=== PATIENT | female | born 1995 | race Caucasian/White ===

== ENCOUNTER 2019-10-24 06:33 | Emergency (ER) | payer SELFPAY ==
[2019-10-24 07:03] VITALS: BP 139/91; PULSE 84; RESP 16; TEMP 36.8; O2SAT 98; BMI 32.0
--- NOTE | 2019-10-24 07:05 | XR_ITS ---
WS: [id number] LEFT ANKLE: 3 VIEW(S) TECHNIQUE: AP, oblique(s) and lateral. HISTORY: ankle injury COMPARISON: None available. Normal anatomic alignment with no fracture or dislocation. No joint effusion or widening of the ankle mortise. No significant degenerative changes at the joint spaces. No soft tissue abnormality. XR/XR ankle LT min 3V* [id number] IMPRESSION: Normal LEFT ankle.
--- NOTE | 2019-10-24 07:06 | W.ED.EXTPRO ---
HPI - Extremity Problem General: Chief complaint: Extremity Injury, Lower Stated complaint: LEFT FOOT ANKLE PAIN Time Seen by Provider: 10/24/19 07:04 Review of Systems Narrative: Patient states that last night she was changing a flat tire. At some time during the repairs she states she jumped up and down and injured her left ankle. Musc: Reports: extremity pain and joint pain PFSH ED PFSH: Social History Smoking and tobacco status: current every day smoker Physical Exam Extremity: COMMON NORMALS: full ROM LEFT LOWER EXTREMITY: Yes ankle joint Left ankle: Yes inspection (ttp) and Yes palpation (ttp) Course Vital Signs: Vital signs: Vital Signs Temperature 98.3 F 10/24/19 07:03 Pulse Rate 84 10/24/19 07:03 Respiratory Rate 16 10/24/19 07:03 Blood Pressure 139/91 10/24/19 07:03 Pulse Oximetry 98 10/24/19 07:03 MDM - Extremity (Nontraumatic) MDM Narrative: Medical decision making narrative: no fx or dislocation on xray Discharge Plan Discharge Patient Disposition: Home, Self-Care Clinical Impression: Ankle sprain and strain Condition: Stable Prescriptions: New Tylenol-Codeine #3 300-30 mg tablet 1 tab PO Q4H PRN (Reason: pain) Qty: 14 RF: 0 Discharge Orders: Discharge Order (Routine); Ordered 10/24/19 Ordered By: Timothy Hearn Patient Instructions: Ankle Sprain (ED) Coding Level of Care Code ED Optimization Engineer for Kaitlyng Fwd Exam Problem Focused
--- NOTE | 2019-10-24 07:13 | PC.NURSE ---
XR performed at bedside
--- NOTE | 2019-10-24 07:15 | PC.NURSE ---
x ray to room
--- NOTE | 2019-10-24 07:57 | PC.NURSE ---
wrapped pts left ankle with 1 3 brittany bandage
[2019-10-24 07:58] VITALS: PULSE 85; RESP 16; O2SAT 98
== END 2019-10-24 07:50 | disposition home or self-care (01) ==
PROVIDERS: Emergency Provider Family Medicine
DX: S93.402A Sprain of unspecified ligament of left ankle, initial encounter (principal); M25.572 Pain in left ankle and joints of left foot; F17.210 Nicotine dependence, cigarettes, uncomplicated; X58.XXXA Exposure to other specified factors, initial encounter
CPT/HCPCS: 12345; 73610; 99282; 99283; E0114

== ENCOUNTER 2019-12-29 22:04 | Emergency (ER) | payer SELFPAY ==
--- NOTE | 2019-12-29 22:46 | W.ED.ALLEREA ---
HPI - Allergic Reaction General: Chief complaint: Allergic Reaction Stated complaint: allergic reaction Time Seen by Provider: 12/29/19 22:12 History of Present Illness: HPI narrative: Patient is a 24-year-old female comes to the ED with an allergic reaction. Patient has a past medical history of being allergic to peanuts and does have an EpiPen for peanut allergy. Allergic reaction started approximately 1 hour ago. Patient says she came in contact with peanut product and a sonic cup that she was drinking from. Patient says she started developing itchy hives rash on all extremities and now she is feeling her mouth getting a little itchy and tingling as well. Denies shortness of breath. Patient did not use EpiPen prior to arrival but did take two 25mg benadryl tablets before arriving to the ED. Associated symptoms: Deny abdominal pain, nausea or vomiting Review of Systems Const: Denies: fever(s), chills or fatigue Eyes: Denies: change in vision or eye discomfort ENMT: Reports: other (Patient says she is having some tingling and itchy sensation in her mouth and throat.); Denies: throat pain, odynophagia, nasal discharge or nasal congestion Card: Denies: chest pain, palpitations, edema, swelling of feet/ankles, dyspnea on exertion or orthopnea Resp: Denies: dyspnea, productive cough or non-productive cough GI: Denies: abdominal pain, nausea, vomiting, diarrhea, constipation or hematochezia : Denies: flank pain, dysuria or hematuria Musc: Denies: neck pain, back pain or extremity swelling Skin/Breast: Reports: rash (Pruritic hive rash on all extremities.); Denies: new lesions Neuro: Denies: headache(s), numbness in extremities or weakness in extremities [facility] ED PFSH: Social History Smoking and tobacco status: current every day smoker Physical Exam Const: COMMON NORMALS: no acute distress, patient oriented x3 and alert GENERAL APPEARANCE: cooperative and anxious HENMT: COMMON NORMALS: normocephalic HEAD & SCALP: normocephalic MOUTH: Normal oral and palatal mucosa present THROAT: posterior oropharynx normal and uvula midline Eye: COMMON NORMALS: Equal, round and reactive pupils present PUPIL: Yes Equal, round and reactive pupils present Neck/C-Spine: COMMON NORMALS: supple GENERAL: Yes normal visual inspection Resp: COMMON NORMALS: normal respiratory effort, No retractions, No use of accessory muscles and clear to auscultation bilaterally EFFORT & INSPECTION: Yes able to speak in complete sentences, No respiratory distress and No labored AUSCULTATION: clear to auscultation bilaterally Cardio: COMMON NORMALS: regular rate, regular rhythm, S1 normal heart sound present, S2 normal heart sound present, No gallops present (Cardio), No clicks present (Cardio), No murmurs present (Cardio) and Peripheral pulses 2+ throughout RATE: regular rate RHYTHM: regular rhythm HEART SOUNDS: S1 normal heart sound present and S2 normal heart sound present PERIPHERAL PULSES: Peripheral pulses 2+ throughout GI: COMMON NORMALS: Normal to inspection, nondistended, normoactive bowel sounds present, Soft to palpation, non-tender and no masses PALPATION: Yes Soft to palpation : COMMON NORMALS: Yes no CVA tenderness BLADDER/KIDNEY EXAM: Yes no CVA tenderness Back/Pelvis: COMMON NORMALS: no CVA tenderness Extremity: NARRATIVE EXTREMITY EXAM: Patient has pruritic hives on all extremities. GENERAL: Yes normal exam except as noted Neuro: COMMON NORMALS: patient oriented x3 and moves all extremities SENSORIUM/ORIENTATION: Yes alert Skin: RASHES: rashes noted (Pruritic rash.) Extremities Rash type: Yes maculopapular Rash distribution: Yes clustered Rash color: Yes red Rash surface: Yes dry and Yes raised Rash findings consistent with: Yes hives Course Reevaluation(s): Reevaluation #1: Within 10 minutes after giving epinephrine injection patient symptoms greatly improved and she is no longer has any itching or tingling sensation in throat or mouth. Hives have also resolved. We will continue to observe her to look for any rebound reaction. Vital Signs: Vital signs: Vital Signs Pulse Rate 98 12/30/19 01:19 Respiratory Rate 18 12/30/19 01:19 Blood Pressure 149/99 12/30/19 01:19 Pulse Oximetry 98 12/30/19 01:19 MDM - Allergic Reaction MDM Narrative: Medical decision making narrative: Patient is a 24-year-old female that comes to the ED with an allergic reaction from peanuts. Patient has an EpiPen for allergic reactions but did not use EpiPen. Patient took 2 tablets of Benadryl before arriving to ED. Patient had hives on upper and lower extremities bilaterally and was complaining of mouth and tongue numbness and tingling. Patient was given a dose of IM epinephrine and some oral prednisone while here in the ED. Patient's hives and oral numbness and tingling resolved within 15 minutes after dose. Patient was then observed for over 2 hours for any rebound reaction. Patient was doing well and ready for discharge. Patient was given a prescription for prednisone. Patient was told to follow-up with PCP in 7 to 10 days for reevaluation. She can come back into the ED if she has any reoccurring symptoms or any shortness of breath. Patient understood and agreed with plan. Discharge Plan Discharge Patient Disposition: Home, Self-Care Clinical Impression: Allergic reaction to peanut Condition: Stable Prescriptions: New prednisone 50 mg tablet 50 mg PO DAILY 5 Days Qty: 5 RF: 0 No Action Tylenol-Codeine #3 300-30 mg tablet 1 tab PO Q4H PRN (Reason: pain) Qty: 14 RF: 0 Discharge Orders: Discharge Order (Routine); Ordered 12/30/19 Ordered By: Ranjan Barton Discharge Diet: Regular Discharge Activity: Resume usual activity Patient Instructions: Allergic Reaction, Epinephrine (Injection) Activity Restrictions/Additional Instructions: Take full course of steroids as prescribed. You can also take Benadryl at home as needed. Return to the ED if you have any worsening symptoms or trouble breathing. Drink plenty fluids and stay hydrated. Discharge Date/Time: 12/30/19 01:20 Coding Level of Care Code ED Figure Refinisher And Repairer for Kenroy Giron Exam Comprehensive
[2019-12-29] MEDS: EPINEPHrine 1 mg/mL INJ 0.5 MG IM (22:56)
--- NOTE | 2019-12-29 23:02 | PC.NURSE ---
patient states that she was getting a drink from [employer] when she noticed that there was a peanut on the side of the cup. patient states that she left work due to her lips swelling and having hives over her body. patient is stating that she is having trouble breathing and tingling in her throat. patient was givn Epi per order. patient hooked up to vitals machine. oxygen saturation 98% on room air. no difficulty breathing at this time. call light given to patient. will contine to monitor.
[2019-12-29 23:30] VITALS: BP 153/96; PULSE 94; RESP 18; O2SAT 98; BMI 32.5
[2019-12-30] MEDS: predniSONE 20 mg Tablet 60 MG PO (00:09)
[2019-12-30 00:15] VITALS: BP 153/96; PULSE 112; RESP 20; O2SAT 98
[2019-12-30 01:19] VITALS: BP 149/99; PULSE 98; RESP 18; O2SAT 98
== END 2019-12-30 01:20 | disposition home or self-care (01) ==
PROVIDERS: Emergency Provider Physician Assistant
DX: T78.1XXA Other adverse food reactions, not elsewhere classified, initial encounter (principal); X58.XXXA Exposure to other specified factors, initial encounter; F17.210 Nicotine dependence, cigarettes, uncomplicated
CPT/HCPCS: 12345; 96372; 99281; 99283; J0171; J7512

== ENCOUNTER → 2020-10-18 10:21 | Outpatient (BNVA) | payer OTHER, SELFPAY | PROVIDERS: Visit Provider Internal Medicine | DX: E16.2 Hypoglycemia, unspecified (principal); R03.0 Elevated blood-pressure reading, without diagnosis of hypertension | CPT/HCPCS: 99204 ==

== ENCOUNTER → 2020-11-01 10:49 | Outpatient (BNVA) | payer OTHER, SELFPAY | PROVIDERS: Visit Provider Internal Medicine | DX: E16.0 Drug-induced hypoglycemia without coma (principal); T38.0X5A Adverse effect of glucocorticoids and synthetic analogues, initial encounter; R03.0 Elevated blood-pressure reading, without diagnosis of hypertension | CPT/HCPCS: 99214 ==

== ENCOUNTER → 2020-11-22 10:33 | Outpatient (BNVA) | payer OTHER, SELFPAY | PROVIDERS: Visit Provider Counselor Professional | DX: F41.1 Generalized anxiety disorder (principal) | CPT/HCPCS: 90834; 90839 ==

== ENCOUNTER → 2020-12-13 09:52 | Outpatient (BNVA) | payer OTHER, SELFPAY | PROVIDERS: Visit Provider Counselor Professional | DX: F41.1 Generalized anxiety disorder (principal); F32.9 Major depressive disorder, single episode, unspecified; F43.10 Post-traumatic stress disorder, unspecified | CPT/HCPCS: 90834 ==

== ENCOUNTER → 2020-12-27 09:02 | Outpatient (BNVA) | payer OTHER, SELFPAY | PROVIDERS: Visit Provider Counselor Professional | DX: F41.1 Generalized anxiety disorder (principal); F32.9 Major depressive disorder, single episode, unspecified; F43.10 Post-traumatic stress disorder, unspecified | CPT/HCPCS: 90834 ==

== ENCOUNTER 2021-01-14 14:14 | Emergency (ER) | payer OTHER, SELFPAY ==
[2021-01-14 14:17] VITALS: BP 164/120; PULSE 135; RESP 24; TEMP 36.5; O2SAT 99; BMI 36.6
[2021-01-14 14:33] VITALS: BP 148/104; PULSE 111; RESP 18; O2SAT 96
--- NOTE | 2021-01-14 14:35 | ED_ITS ---
HPI - General Adult General: Chief complaint: General Medical Stated complaint: medication withdrawl Time Seen by Provider: 01/14/21 14:18 History of Present Illness: HPI narrative: 25-year-old female presents emergency room with acute anxiety attack. 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 In talking to her patient stopped her buspirone sertraline and trazodone sometime around 01/09, she then started Zyprexa 5 mg daily on . She stopped it secondary to side effects yesterday today she had a severe reaction. She denies any other symptoms she is not suicidal or homicidal. Onset (ago): minute(s) Severity: severe Relieving factors: none Exacerbating factors: none Associated symptoms: Reports nausea, palpitations, short of breath and vomiting; Deny chest pain, confusion, cough, diaphoresis, decreased appetite, dyspnea, fevers/chills, headache(s), malaise, rash, seizures, syncope or weakness Treatments prior to arrival: none Review of Systems Const: Denies: malaise or diaphoresis ENMT: Denies: throat pain, ear or mastoid pain, nasal discharge or nasal congestion Card: Reports: palpitations; Denies: chest pain or syncope Resp: Denies: dyspnea GI: Reports: nausea and vomiting : Denies: flank pain, difficulty voiding, dysuria, urinary frequency or urinary urgency Skin/Breast: Denies: rash Neuro: Denies: headache(s) or confusion PFS ED PFSH: Medical History Anxiety Depression Hypoglycemia Surgical History History of placement of ear tubes History of tonsillectomy and adenoidectomy Family History Other Cancer Diabetes Hypertension Psychiatric illness Stroke Social History Smoking and tobacco status: current every day smoker Second hand smoke exposure: Yes Alcohol intake: current Alcohol intake frequency: holidays/special occasions only Physical Exam Const: COMMON NORMALS: no acute distress GENERAL APPEARANCE: cooperative and comfortable ORIENTATION/CONSCIOUSNESS: Yes awake, Yes oriented to person, Yes oriented to place and Yes oriented to time HENMT: COMMON NORMALS: normocephalic, atraumatic, hearing grossly normal bilaterally and external ears normal HEAD & SCALP: normocephalic and atraumatic EXTERNAL EAR: Yes external ears normal Neck/C-Spine: COMMON NORMALS: no JVD Resp: COMMON NORMALS: normal respiratory effort, No retractions, No use of accessory muscles and clear to auscultation bilaterally AUSCULTATION: clear to auscultation bilaterally Cardio: COMMON NORMALS: no JVD, regular rate, regular rhythm and No murmurs present (Cardio) RATE: regular rate RHYTHM: regular rhythm GI: COMMON NORMALS: Soft to palpation and No hepatosplenomegaly present AUSCULTATION: Yes normoactive bowel sounds PALPATION: Yes Soft to palpation, No Tenderness to palpation present (GI), No Guarding due to palpation present (GI) and Yes No hepatosplenomegaly present Extremity: COMMON NORMALS: normal to inspection, capillary refill normal, no clubbing, cyanosis or edema, no calf tenderness and no pedal edema Neuro: SENSORIUM/ORIENTATION: Yes oriented to person, Yes oriented to place and Yes oriented to time Skin: COMMON NORMALS: no rashes or lesions noted GENERAL SKIN EXAM: no rashes or lesions noted Course Vital Signs: Vital signs: Vital Signs Temperature 97.7 F 01/14/21 14:17 Pulse Rate 111 H 01/14/21 14:33 Respiratory Rate 18 01/14/21 14:33 Blood Pressure 148/104 01/14/21 14:33 Pulse Oximetry 96 01/14/21 14:33 MDM - General Adult MDM Narrative: Medical decision making narrative: Consulted Dr. Braxton via phone he recommends that it is situational active as he would restart buspirone and sertraline at low-dose hold off on the trazodone and use propranolol 20 mg every 8 hours as needed. He was able to review the [facility] notes in the EMR. I do not have access to these notes. We will institute the sertraline at 50 mg daily she probably could have this titrated back up relatively quickly. I think she will benefit from regular use of the BuSpar instead of simply as needed use and it may cut down on her side effects. Instead she should use the propranolol on a as needed basis to help with acute anxiety physical symptoms. She made a comment that she always can tell when she is about to have a panic attack she can sense that her heart rate is going up the propranolol should help keep these from escalating. Asked her to hold off on any Zyprexa for now. She should follow-up and have all of these medications adjusted/fine-tuned through [facility] within the next 1 to 2 weeks. Discharge Plan Discharge Patient Disposition: Home Clinical Impression: Anxiety, Panic attack as reaction to stress Condition: Stable Prescriptions: New sertraline 50 mg tablet 50 mg PO DAILY Qty: 30 RF: 0 buspirone 7.5 mg tablet 7.5 mg PO BID Qty: 20 RF: 0 propranolol 20 mg tablet 20 mg PO Q8H PRN (Reason: anxiety) Qty: 30 RF: 0 Discontinued aripiprazole 5 mg tablet 5 mg PO QPM RF: 0 No Action trazodone 50 mg tablet 50 mg PO BEDTIME RF: 0 desogestrel-ethinyl estradiol [Apri] 0.15-0.03 mg tablet 1 tab PO BEDTIME RF: 0 Tylenol 325 mg Tablet 650 mg PO PRN RF: 0 Benadryl 25 mg Capsule 50 mg PO PRN RF: 0 montelukast 10 mg tablet 10 mg PO DAILY PRN (Reason: UNKNOWN) RF: 0 Flonase 50 mcg/actuation [place],Suspension 2 spray INTRANASAL DAILY RF: 0 Discharge Orders: Discharge ED (Routine); Ordered 01/14/21 Ordered By: Sarthak Nelson Discharge Diet: Usual diet Discharge Activity: Increase activity as tolerated Patient Instructions: Opioid Safety Coding Level of Care Code ED Golf Course Superintendent for Kenroy Giron
[2021-01-14] MEDS: LORazepam 2 mg/mL INJ 1 mL IM (14:36)
[2021-01-14 15:25] VITALS: BP 128/81; PULSE 102; RESP 18; O2SAT 100
== END 2021-01-14 15:26 | disposition home or self-care (01) ==
PROVIDERS: Emergency Provider Family Medicine
DX: F41.9 Anxiety disorder, unspecified (principal); F41.0 Panic disorder [episodic paroxysmal anxiety]; F17.210 Nicotine dependence, cigarettes, uncomplicated
CPT/HCPCS: 96372; 99283; J2060

== ENCOUNTER 2021-04-17 18:55 | Emergency (ER) | payer OTHER, SELFPAY ==
[2021-04-17 19:31] VITALS: BP 143/97; PULSE 110; RESP 18; TEMP 36.5; O2SAT 96; BMI 32.9
--- NOTE | 2021-04-17 20:00 | ED_ITS ---
HPI - Headache General: Chief Complaint: Headache Stated Complaint: Got Covid Shot\Headache\Nausea\Muscle Aches Time Seen by Provider: 04/17/21 19:57 History of Present Illness: HPI Narrative: Patient complains about headache since she had her Covid shot on Wednesday. Patient has history of migraines. Patient says she is bothered by light and sound. Has been nauseated has had some diarrhea also. Did have Covid back in January. MD elicited complaint: headache Onset (ago): day(s) Onset description: gradually Location: temporal Severity: moderate Quality & Timing: throbbing Exacerbating factors: light and noise Relieving factors: nothing Associated symptoms: Reports nausea and other (Diarrhea, myalgia); Deny chest pain, fever(s) or rash Review of Systems Const: Denies: fever(s), chills or body aches Eyes: Denies: change in vision or blurry vision ENMT: Denies: throat pain or nasal congestion Card: Denies: chest pain or dyspnea on exertion Resp: Denies: dyspnea, productive cough or non-productive cough GI: Reports: nausea Musc: Reports: extremity pain (Myalgias) Skin/Breast: Denies: rash Neuro: Reports: headache(s) Psych: Denies: anxiety or depression Homer/Lymph: Denies: easy bruising PFSH ED PFSH: Medical History (Updated 04/17/21 @ 21:30 by LUBNA Masterson) Anxiety Bipolar 1 disorder, mixed, moderate Chronic post-traumatic stress disorder Depression Generalized anxiety disorder Hypoglycemia Psychiatric care Surgical History History of placement of ear tubes History of tonsillectomy and adenoidectomy Family History Other Cancer Diabetes Hypertension Psychiatric illness Stroke Social History Smoking and tobacco status: current every day smoker Second hand smoke exposure: Yes Alcohol intake: current Alcohol intake frequency: holidays/special occasions only Female Reproductive History: Date of last menstrual period: 04/03/21 Physical Exam Const: COMMON NORMALS: no acute distress, average body habitus and patient oriented x3 HENMT: COMMON NORMALS: normocephalic HEAD & SCALP: normal to inspection and normocephalic FACE & SINUS: normal facial exam Eye: COMMON NORMALS: conjunctivae normal GENERAL EYE: appearance normal, both eyes and all related structures CONJUNCTIVA: Yes conjunctivae normal Neck/C-Spine: COMMON NORMALS: no JVD Chest: COMMONS NORMALS: normal inspection of the chest Resp: COMMON NORMALS: normal respiratory effort and clear to auscultation bilaterally AUSCULTATION: clear to auscultation bilaterally Cardio: COMMON NORMALS: no JVD, regular rate and regular rhythm RATE: regular rate RHYTHM: regular rhythm GI: COMMON NORMALS: Normal to inspection, nondistended, normoactive bowel sounds present Extremity: COMMON NORMALS: normal to inspection and full ROM Neuro: COMMON NORMALS: patient oriented x3, moves all extremities, no focal motor deficits and no sensory deficits noted Course Vital Signs: Vital signs: Vital Signs Temperature 97.7 F 04/17/21 19:31 Pulse Rate 110 H 04/17/21 19:31 Respiratory Rate 18 04/17/21 19:31 Blood Pressure 143/97 04/17/21 19:31 Pulse Oximetry 96 04/17/21 19:31 MDM - Headache MDM Narrative: Medical decision making narrative: Patient is pain-free. Requesting go home. Patient tolerated medication fluids very well. Rx was provided. Discharge Plan Discharge Patient Disposition: Home Clinical Impression: Headache Qualifiers: Headache type: other headache syndrome Qualified Code(s): G44.89 - Other headache syndrome Condition: Stable Prescriptions: New Celebrex 100 mg capsule 100 mg PO BID Qty: 20 RF: 0 No Action desogestrel-ethinyl estradiol [Apri] 0.15-0.03 mg tablet 1 tab PO BEDTIME RF: 0 bupropion HCl [Wellbutrin SR] 150 mg tablet sustained-release 12 hr 150 mg PO QAM Qty: 30 RF: 1 cyproheptadine 4 mg tablet 4 mg PO .bedtime Qty: 30 RF: 3 propranolol 10 mg tablet 10 mg PO BID Qty: 60 RF: 3 trazodone 50 mg tablet 50 mg PO DIRECTED PRN (Reason: insomnia) Qty: 30 RF: 3 lorazepam [Ativan] 0.5 mg tablet 0.5 mg PO DAILY PRN (Reason: anxiety) Qty: 14 RF: 1 Tylenol 325 mg Tablet 650 mg PO PRN RF: 0 montelukast 10 mg tablet 10 mg PO DAILY PRN (Reason: UNKNOWN) RF: 0 Flonase 50 mcg/actuation [place],Suspension 2 spray INTRANASAL DAILY RF: 0 Discharge Orders: Discharge ED (Routine); Ordered 04/17/21 Ordered By: Jarod Wong Discharge Diet: Usual diet Discharge Activity: Increase activity as tolerated Activity Restrictions/Additional Instructions: Follow-up with medical provider as directed. Take medications as prescribed. Return to the ER or your medical provider if condition worsens. Please read and understand discharge instructions. If any questions ask please. Coding Level of Care Code ED Air Conditioning Mechanic Industrial for Kenroy Fwric Exam Comprehensive
[2021-04-17] MEDS: sodium chloride 0.9% 1,000 ML 999 ML IV (20:35)
[2021-04-17] MEDS: ketorolac 30 mg/mL INJ IVP (20:48)
[2021-04-17] MEDS: diphenhydrAMINE 50 mg/mL SDV 1mL IVP (20:48)
[2021-04-17] MEDS: ondansetron 2 mg/ML SDV 2 mL 8 MG IVP (20:48)
[2021-04-17 21:58] VITALS: BP 128/70; PULSE 84; RESP 18; O2SAT 97
== END 2021-04-17 21:50 | disposition home or self-care (01) ==
PROVIDERS: Emergency Provider Nurse Practitioner Family
DX: G44.89 Other headache syndrome (principal); F17.210 Nicotine dependence, cigarettes, uncomplicated
CPT/HCPCS: 96361; 96374; 96375; 99283; J1200; J1885; J2405; J7030

== ENCOUNTER 2021-11-29 18:24 | Emergency (ER) | payer OTHER, SELFPAY ==
[2021-11-29 18:31] VITALS: BP 158/119; PULSE 87; RESP 16; TEMP 36.9; O2SAT 98
[2021-11-29 18:36] VITALS: BP 141/100; PULSE 75; RESP 16; TEMP 36.6; O2SAT 98
--- NOTE | 2021-11-29 18:43 | ED_ITS ---
HPI - Dizziness General: Chief Complaint: Dizziness Stated Complaint: High BP Time Seen by Provider: 11/29/21 18:43 History of Present Illness: HPI Narrative: 25-year-old female comes in today for complaints of dizziness and elevated blood pressure. Patient was placed on methylprednisolone for hives. After starting the medication 2 days ago patient noticed that her blood pressure elevated and has persisted. Patient reports improvement of the hives. Patient does also take medication for anxiety. Patient appears nontoxic. Patient appears no pain. Associated symptoms: Reports nausea; Denies chest pain or palpitations Review of Systems General: Reports: 10 or more systems reviewed and unremarkable except in HPI and below Const: Denies: fever(s) Card: Denies: chest pain or palpitations Resp: Denies: dyspnea GI: Reports: nausea Neuro: Reports: dizziness PFS ED PFSH: Medical History (Updated 11/29/21 @ 19:54 by LUBNA Pate) Anxiety Bipolar 1 disorder, mixed, moderate Chronic post-traumatic stress disorder Depression Generalized anxiety disorder Hypoglycemia Psychiatric care Surgical History History of placement of ear tubes History of tonsillectomy and adenoidectomy Family History Other Cancer Diabetes Hypertension Psychiatric illness Stroke Social History Smoking and tobacco status: current every day smoker Second hand smoke exposure: Yes Alcohol intake: current Alcohol intake frequency: holidays/special occasions only Female Reproductive History: Date of last menstrual period: 04/03/21 Physical Exam Const: COMMON NORMALS: alert HENMT: COMMON NORMALS: normocephalic HEAD & SCALP: normocephalic THROAT: posterior oropharynx normal Eye: GENERAL EYE: appearance normal, both eyes and all related structures Neck/C-Spine: COMMON NORMALS: full ROM and no meningeal signs Resp: COMMON NORMALS: normal respiratory effort and clear to auscultation bilaterally AUSCULTATION: clear to auscultation bilaterally Cardio: COMMON NORMALS: regular rate and regular rhythm RATE: regular rate RHYTHM: regular rhythm GI: COMMON NORMALS: Soft to palpation and non-tender PALPATION: Yes Soft to palpation Extremity: COMMON NORMALS: no pedal edema Neuro: SENSORIUM/ORIENTATION: Yes alert MENINGEAL SIGNS: Yes no meningeal signs Skin: COMMON NORMALS: no rashes or lesions noted GENERAL SKIN EXAM: no rashes or lesions noted Course Vital Signs: Vital signs: Vital Signs Temperature 97.9 F 11/29/21 19:28 Pulse Rate 75 11/29/21 19: Respiratory Rate 16 11/29/21 19:28 Blood Pressure 131/100 11/29/21 19:28 Pulse Oximetry 98 11/29/21 19:28 MDM - Dizziness Medical Decision Making Patient comes in due to dizziness and elevated blood pressure. Patient was started on methylprednisolone 2 days ago and noticed that her blood pressure has elevated since starting the medication. On exam lungs are clear to auscultation. No edema is noted in the extremities. Heart rates regular in the 80s. Differential diagnosis includes but not limited to uncontrolled hypertension, adverse drug effect, anxiety. Patient was given a dose of Zofran and 1 mg of Ativan for her dizziness and anxiety. This brought blood pressure down to 130s systolic from 170 systolic. CBC had some mild elevation of white count at 15,000, CMP was unremarkable, urinalysis and test were negative. Recommend stopping methylprednisolone which most likely cause some sodium retention elevation in her blood pressure. Patient agreed to plan and recommendations for recheck of blood pressure in 3 days. Lab Data : 11/29/21 19:15 11/29/21 19:15 Laboratory Results WBC 15.7 10^3/uL (4.0-10.0) H 11/29/21 19:15 RBC 5.35 10^6/uL (4.1-5.3) H 11/29/21 19:15 Hgb 14.5 g/dL (11.5-15.3) 11/29/21 19:15 Hct 45.2 % (37.0-47.0) 11/29/21 19:15 MCV 84.5 fl (81-99) 11/29/21 19:15 MCH 27.1 pg (28.0-34.0) L 11/29/21 19:15 MCHC 32.1 g/dL (30.0-36.0) 11/29/21 19:15 RDW 12.9 % (12.1-15.1) 11/29/21 19:15 Plt Count 464 10^3/cmm (130-400) H 11/29/21 19:15 MPV 8.8 fL (7.4-10.4) 11/29/21 19:15 Neut % (Auto) 71.9 % 11/29/21 19:15 Lymph % (Auto) 22.0 % 11/29/21 19:15 [place] % (Auto) 5.0 % 11/29/21 19:15 Eos % (Auto) 0.3 % 11/29/21 19:15 Baso % (Auto) 0.4 % 11/29/21 19:15 Neut # (Auto) 11.32 10^3/uL (1.8-7.7) H 11/29/21 19:15 Lymph # (Auto) 3.5 10^3/uL (0.8-4.8) 11/29/21 19:15 [place] # (Auto) 0.8 10^3/uL (0.2-0.9) 11/29/21 19:15 Eos # (Auto) 0.0 10^3/uL (0.0-0.8) 11/29/21 19:15 Baso # (Auto) 0.1 10^3/uL (0.0-0.1) 11/29/21 19:15 Nucleated RBC % (auto) 0 % 11/29/21 19:15 Nucleated RBCs # 0.0 /100WBC 11/29/21 19:15 Sodium 136 mmol/L (136-145) 11/29/21 19:15 Potassium 3.6 mmol/L (3.5-5.1) 11/29/21 19:15 Chloride 102 mmol/L (98-107) 11/29/21 19:15 Carbon Dioxide 19 mmol/L (22-29) L 11/29/21 19:15 Anion Gap 18.6 (5-19) 11/29/21 19:15 BUN 9 mg/dL (6-20) 11/29/21 19:15 Creatinine 0.6 mg/dL (0.5-0.9) 11/29/21 19:15 GFR Calculation 123.9 mL/min (90-130) 11/29/21 19:15 Glucose 100 mg/dL (65-115) 11/29/21 19:15 Calculated Osmolality 281 mOsm/kg (285-295) L 11/29/21 19:15 Calcium 8.9 mg/dL (8.5-10.5) 11/29/21 19:15 HCG, Qual Negative (Negative) 11/29/21 19:15 Urine Color Yellow (Yellow) 11/29/21 18:25 Urine Appearance Clear (CLEAR) 11/29/21 18:25 Urine pH 7 (5-7) 11/29/21 18:25 Ur Specific [place] 1.030 (1.005-1.030) 11/29/21 18:25 Urine Protein Neg (Negative) 11/29/21 18:25 Urine Glucose (UA) Norm (Normal) 11/29/21 18:25 Urine Ketones Negative (Negative) 11/29/21 18:25 Urine Blood Neg (Negative) 11/29/21 18:25 Urine Nitrate Negative (Negative) 11/29/21 18:25 Urine Bilirubin Neg (Negative) 11/29/21 18:25 Urine Urobilinogen Norm mg/dL (Negative) 11/29/21 18:25 Ur Leukocyte Esterase Negative (Negative) 11/29/21 18:25 Discharge Plan Discharge Patient Disposition: Home Clinical Impression: Adverse reaction to drug Qualifiers: Encounter type: initial encounter Qualified Code(s): T50.905A - Adverse effect of unspecified drugs, medicaments and biological substances, initial encounter Condition: Stable Prescriptions: No Action desogestrel-ethinyl estradiol [Apri] 0.15-0.03 mg tablet 1 tab PO BEDTIME 0RF bupropion HCl [Wellbutrin SR] 200 mg tablet sustained-release 12 hr 200 mg PO QAM Qty: 30 3RF Rx Instructions: Take one tablet every morning cyproheptadine 4 mg tablet 4 mg PO .bedtime Qty: 30 3RF Rx Instructions: Take one tablet at bedtime propranolol 10 mg tablet 10 mg PO BID Qty: 60 3RF Rx Instructions: Take one tablet twice per day, am and evening trazodone 50 mg tablet 50 mg PO DIRECTED PRN (Reason: insomnia) Qty: 30 3RF Rx Instructions: May take one tablet one hour prior to bedtime as needed for sleep lorazepam [Ativan] 0.5 mg tablet 0.5 mg PO DAILY PRN (Reason: anxiety) Qty: 30 1RF Rx Instructions: Take one tablet daily as needed for anxiety Tylenol 325 mg Tablet 650 mg PO PRN 0RF Discharge Orders: Discharge ED (Routine); Ordered 11/29/21 Ordered By: Gerard Barrett Referrals: Gutierrez Danielson MD [Primary Care Provider] - Discharge Diet: Usual diet Discharge Activity: Increase activity as tolerated Patient Instructions: DASH Eating Plan (ED), Hypertension (ED) Activity Restrictions/Additional Instructions: Home and rest. Stop methylprednisolone. Use Claritin or Zyrtec to help control hives. You may take 1 Claritin in the morning and Zyrtec in the evening which usually will control the hives if needed. Follow-up with primary care in 3 days for recheck of blood pressure. Return to ER for new concerns. 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
[2021-11-29] MEDS: LORazepam 2 mg/mL INJ 1 mL 1 MG IVP (19:13)
[2021-11-29 19:22] LABS: Add Urine Microscopic? NO; Charge for UA Resulting for Rev
[2021-11-29 19:24] LABS: Basophils # 0.1 10^3/uL (0.0-0.1); Basophils % 0.4 %; Eosinophils % 0.3 %; Hematocrit 45.2 % (37.0-47.0); Hemoglobin 14.5 g/dL (11.5-15.3); Lymphocytes # 3.5 10^3/uL (0.8-4.8); Mean Corpuscular HGB Conc 32.1 g/dL (30.0-36.0); Mean Corpuscular Hemoglobin 27.1 pg (28.0-34.0); Mean Corpuscular Volume 84.5 fl (81-99); Mean Platelet Volume 8.8 fL (7.4-10.4); Monocytes # 0.8 10^3/uL (0.2-0.9); Neutrophils # 11.32 10^3/uL (1.8-7.7); Neutrophils % 71.9 %; Nucleated Red Blood Cells % 0 %; Platelet Count 464 10^3/cmm (130-400); Red Blood Count 5.35 10^6/uL (4.1-5.3); Red Cell Distribution Width 12.9 % (12.1-15.1); White Blood Count 15.7 10^3/uL (4.0-10.0)
[2021-11-29 19:28] VITALS: BP 131/100; BP 141/100; PULSE 75; RESP 16; TEMP 36.6; O2SAT 98
[2021-11-29 19:28] LABS: Urine Appearance Clear (CLEAR); Urine Color Yellow (Yellow)
[2021-11-29 19:29] LABS: Bilirubin Urine Neg (Negative); Blood Urine Neg (Negative); Glucose Urine UA Norm (Normal); Ketones Urine Negative (Negative); Leukocyte Esterase Urine Negative (Negative); Nitrate Urine Negative (Negative); Protein Urine Neg (Negative); Urobilinogen Urine Norm (Negative); pH Urine 7 (5-7)
[2021-11-29 19:41] LABS: HCG, Serum Qual Negative (Negative)
[2021-11-29 19:43] LABS: Anion Gap 18.6 (5-19); Blood Urea Nitrogen 9 mg/dL (6-20); Calcium 8.9 mg/dL (8.5-10.5); Carbon Dioxide 19 mmol/L (22-29); Chloride 102 mmol/L (98-107); Glomerular Filtration Rate 123.9 mL/min (90-130); Glucose 100 mg/dL (65-115); Osmolality Calculated 281 mOsm/kg (285-295); Potassium 3.6 mmol/L (3.5-5.1); Sodium 136 mmol/L (136-145)
[2021-11-29 20:17] VITALS: BP 131/100; PULSE 75; RESP 16; TEMP 36.6; O2SAT 98
== END 2021-11-29 20:18 | disposition home or self-care (01) ==
PROVIDERS: Emergency Provider Nurse Practitioner Family; PCP Family Medicine
DX: R03.0 Elevated blood-pressure reading, without diagnosis of hypertension (principal); T38.0X5A Adverse effect of glucocorticoids and synthetic analogues, initial encounter; F41.9 Anxiety disorder, unspecified
CPT/HCPCS: 80048; 81003; 84703; 85025; 96374; 99283; J2060

== ENCOUNTER → 2022-02-17 16:33 | Outpatient (BNVA) | payer OTHER, SELFPAY | PROVIDERS: PCP Nurse Practitioner Family; Visit Provider Internal Medicine | DX: I47.1 Supraventricular tachycardia (principal) | CPT/HCPCS: 36415; 84439; 84443 ==

== ENCOUNTER 2022-02-19 11:37 | Outpatient (CLI) | payer OTHER, SELFPAY ==
[2022-02-24 18:07] LABS: Calculated Total (E+NE) 26 mcg/24 h (26-121)
== END 2022-02-19 11:38 | disposition home or self-care (01) ==
PROVIDERS: PCP Nurse Practitioner Family; Visit Provider Internal Medicine
DX: E16.2 Hypoglycemia, unspecified (principal)
CPT/HCPCS: 82384

== ENCOUNTER 2022-03-11 08:13 | Outpatient (CLI) | payer OTHER, SELFPAY ==
--- NOTE | 2022-03-11 08:30 | USCV_ITS ---
MurilloKamla Age: 26 Gender: F : 1995 Exam Date: 03/11/2022 08:53 Ordering Phys: Kyler Grossman M.D ([email or web address]) Technologist: Tresa Mar [place]am [place] [facility] [place]: HTN SOB Post Covid Aortic Velocity @ SMA (cm/s) 110 RIGHT KIDNEY LEFT KIDNEY Velocity (cm/s) Velocity (cm/s) Sys/Weaver Sys/Weaver Resistive Index Resistive Index 124.7 / 56.8 0.54 Proximal Renal Artery 80.6 / 30.6 0.62 120.6 / 51.3 0.57 Mid Renal Artery 66.1 / 17.7 0.73 115.0 / 31.9 0.72 Distal Renal Artery 69.8 / 25.8 0.63 66.1 / 26.4 0.60 Hilar 41.1 / 18.6 0.55 16.6 / 4.3 0.75 Upper Pole 39.0 / 18.7 0.52 37.8 / 17.4 0.54 Mid Pole 23.4 / 10.6 0.55 22.9 / 10.9 0.53 Lower Pole 63.9 / 27.9 0.56 1.10 Renal Aortic Ratio 0.73 Accleration Index (cm/sec2) 518.00 Hilar 421.00 348.00 Upper Pole 269.00 425.00 Mid Pole 334.00 491.00 Lower Pole 594.00 105.3 Kidney Length (mm) 120.9 FINDINGS Normal renal arterial Doppler velocities Normal resistive indicis Normal acceleration indicis Normal renal to aortic ratios CONCLUSIONS 1. No evidence of renal artery stenosis, based on the above findings 2. Normal kidney dimensions Dr Jessy Castano MD [facility] (Electronically Signed) Final Date: 12 March 2022 21:48 S
--- NOTE | 2022-03-11 10:00 | USCV_ITS ---
Kamla Murillo Age: 26 Gender: F : 1995 Exam Date: 03/11/2022 08:30 Ordering Phys: Kyler Grossman M.D ([email or web address]) Technologist: Tresa Mar Exam Location: [facility] – [place] Indication: HTN SOB BP: 121 / 76 HR: 71 Rhythm: Sinus Technical Quality: Adequate MEASUREMENTS (Male / Female) Normal Values 2D ECHO LV Diastolic Diameter PLAX 5.1 cm 4.2 - 5.9 / 3.9 - 5.3 cm LV Systolic Diameter PLAX 2.5 cm LV Chamber Size 3.1 cm IVS Diastolic Thickness 0.8 cm 0.6 - 1.0 / 0.6 - 0.9 cm IVS Systolic Thickness 1.4 cm LVPW Diastolic Thickness 0.8 cm 0.6 - 1.0 / 0.6 - 0.9 cm LVPW Systolic Thickness 1.3 cm RV Chamber Size 2.8 cm LVOT Diameter 2.0 cm LV Ejection Fraction 2D Teich 82.7 % LV Ejection Fraction MOD 2C 11.4 % LV Ejection Fraction 2C AL 13.0 % LA Diameter 2.9 cm LA Width 2.5 cm LA Height 3.3 cm RA Width 2.4 cm RA Height 3.1 cm Aorta at Sinotubular Diameter 2.4 cm IVC Diameter 1.3 cm M-MODE Aortic Annulus Diameter 2.9 cm LA Ao Ratio MM 1.2 MV E Point Septal Separation 0.2 cm DOPPLER AV Peak Velocity 151.0 cm/s LVOT Peak Velocity 89.0 cm/s AV Area Cont Eq vti 2.2 cm squared AV Area Cont Eq pk 1.9 cm squared MV Area PHT 4.1 cm squared Mitral E to A Ratio 1.8 MV E' Velocity 55.5 cm/s Mitral E to MV E' Ratio 6.2 Mitral E to LV E' Lateral Ratio 5.2 Mitral E to LV E' Septal Ratio 7.7 TR Peak Velocity 225.3 cm/s TR Peak Gradient 20.3 mmHg TR Mean Velocity 171.0 cm/s TR Mean Gradient 12.6 mmHg TR Velocity Time Integral 53.6 cm Right Atrial Pressure 3.0 mmHg Pulmonary Artery Systolic Pressu 23.3 mmHg PV Peak Velocity 63.0 cm/s RV Acceleration Time 0.1 s RV Ejection Time 0.3 s RV AcT/ET 0.4 FINDINGS Left Ventricle Normal left ventricular size and systolic function, EF 60% no regional wall motion abnormalities. Right Ventricle The right ventricle is normal in size and function. Right Atrium The right atrium is normal in size. Left Atrium The left atrium is normal in size. Mitral Valve Trace mitral valve regurgitation. Aortic Valve No gross abnormalities noted. Tricuspid Valve Trace to mild tricuspid valve regurgitation. Pulmonic Valve Pulmonic valve not well visualized. Pericardium No pericardial effusion. Aorta Normal ascending aorta dimension. IVC Normal inferior vena cava. CONCLUSIONS Normal left ventricular size and systolic function, EF 60% no regional wall motion abnormalities. Trace to mild tricuspid valve regurgitation. Trace mitral valve regurgitation. Normal cardiac chamber sizes. No significant valvular abnormalities. No previous study is available for comparison. Dr Jessy Castano MD [facility] (Electronically Signed) Final Date: 11 March 2022 20:37 S
== END 2022-03-11 08:14 | disposition home or self-care (01) ==
PROVIDERS: PCP Nurse Practitioner Family; Visit Provider Internal Medicine
DX: R06.02 Shortness of breath (principal); I10 Essential (primary) hypertension; I08.1 Rheumatic disorders of both mitral and tricuspid valves
CPT/HCPCS: 93306; 93975

== ENCOUNTER 2023-04-12 07:00 | Outpatient (CLI) | payer OTHER, SELFPAY ==
[2023-04-12 07:00] VITALS: BMI 43.3
[2023-04-12 07:15] VITALS: BP 134/75; PULSE 89
[2023-04-12 07:30] LABS: Nitrazine Paper, PH Negative
[2023-04-12 07:35] VITALS: BP 123/64; PULSE 83
[2023-04-12 07:36] LABS: Actim Prom Negative; Bilirubin Urine Neg (Negative); Blood Urine Neg (Negative); Glucose Urine UA Norm (Normal); Ketones Urine Negative (Negative); Leukocyte Esterase Urine Negative (Negative); Nitrate Urine Negative (Negative); Protein Urine Neg (Negative); Specific Gravity, Urine 1.025 (1.005-1.030); Urine Appearance SL Hazy (CLEAR); Urine Color Yellow (Yellow); Urobilinogen Urine Norm (Negative); pH Urine 6 (5-7)
[2023-04-12 07:46] LABS: Bacteria Urine 1+ /hpf; Mucus Urine TRACE /hpf; RBC Urine 0-4 /hpf (0-2); Squamous Epithelial Cell Urine 0-4 /hpf (0-5)
[2023-04-12 07:47] LABS: Add Urine Culture? No
== END 2023-04-12 07:55 | disposition home or self-care (01) ==
LOC: OPOB 07:07 → OBGYN 07:08
PROVIDERS: PCP Nurse Practitioner Family; Visit Provider Family Medicine
DX: O26.899 Other specified pregnancy related conditions, unspecified trimester (principal); Z3A.00 Weeks of gestation of pregnancy not specified; N89.8 Other specified noninflammatory disorders of vagina
CPT/HCPCS: 81001; 83986; 84112; 99211

== ENCOUNTER 2023-07-15 14:36 | Outpatient (CLI) | payer OTHER, SELFPAY ==
[2023-07-15] VITALS (9 sets, daily range): BP systolic 128–150; BP diastolic 77–91; PULSE 76–85; RESP 18; BMI 44.4
[2023-07-15 15:14] LABS: Basophils % 0.4 %; Eosinophils # 0.1 10^3/uL (0.0-0.8); Eosinophils % 1.2 %; Hematocrit 39.5 % (36-47); Lymphocytes # 2.5 10^3/uL (0.8-4.8); Lymphocytes % 23.6 %; Mean Corpuscular HGB Conc 33.2 g/dL (30-55); Mean Corpuscular Hemoglobin 28.2 pg (27-33); Mean Corpuscular Volume 84.9 fl (85-98); Mean Platelet Volume 10.4 fL (7.4-10.4); Monocytes # 0.5 10^3/uL (0.2-0.9); Monocytes % 5.1 %; Neutrophils # 7.19 10^3/uL (1.8-7.7); Neutrophils % 69.2 %; Nucleated Red Blood Cells % 0 %; Platelet Count 244 10^3/cmm (157-399); Red Blood Count 4.65 10^6/uL (3.85-5.65); Red Cell Distribution Width 14.5 % (12.1-15.1); White Blood Count 10.38 10^3/uL (3.29-11.43)
[2023-07-15 15:29] LABS: Alanine Aminotransferase 16 U/L (0-33); Albumin Level 3.4 g/dL (3.5-5.2); Alkaline Phosphatase 121 U/L (35-105); Anion Gap 14.1 (5-19); Aspartate Amino Transferase 17 U/L (0-32); Blood Urea Nitrogen 5 mg/dL (6-20); Calcium 8.9 mg/dL (8.5-10.5); Carbon Dioxide 20 mmol/L (22-29); Chloride 105 mmol/L (98-107); Globulin 2.8 g/dL (1.3-4.6); Glomerular Filtration Rate 121.8 mL/min (90-130); Glucose 94 mg/dL (65-115); Osmolality Calculated 277 mOsm/kg (285-295); Potassium 4.1 mmol/L (3.5-5.1); Sodium 135 mmol/L (136-145); Total Bilirubin 0.2 mg/dL (0.15-1.2); Total Protein 6.2 g/dL (6.6-8.7); Uric Acid 6.2 mg/dL (2.4-5.7)
[2023-07-15 15:57] LABS: Add Urine Microscopic? YES; Bilirubin Urine Neg (Negative); Blood Urine Neg (Negative); Glucose Urine UA Norm (Normal); Ketones Urine Negative (Negative); Leukocyte Esterase Urine Negative (Negative); Nitrate Urine Negative (Negative); Protein Urine Neg (Negative); Urine Appearance SL Hazy (CLEAR); Urine Color Yellow (Yellow); Urobilinogen Urine Norm (Negative); pH Urine 6.5 (5-7)
[2023-07-15 15:59] LABS: Add Urine Culture? No; Bacteria Urine 1+ /hpf; Mucus Urine 2+ /hpf; RBC Urine 0-4 /hpf (0-2); Renal Epithelial Cells Urine 0-4 /hpf; WBC Urine 0-4 /hpf (0-5)
[2023-07-15 16:10] LABS: Urine Creatinine 242 mg/dL (28-217); Urine Protein Random 23 mg/dL
== END 2023-07-15 16:40 | disposition home or self-care (01) ==
LOC: OPOB 14:36 → OBGYN 14:37
PROVIDERS: PCP Nurse Practitioner Family; Visit Provider Family Medicine
DX: O16.9 Unspecified maternal hypertension, unspecified trimester (principal); Z3A.00 Weeks of gestation of pregnancy not specified
CPT/HCPCS: 59025; 80053; 81001; 82570; 84156; 84550; 85025; 99211

== ENCOUNTER 2023-07-16 16:20 | Inpatient (IN) | payer OTHER, SELFPAY ==
[2023-07-16] VITALS (19 sets, daily range): BP systolic 127–162; BP diastolic 72–105; PULSE 65–92; RESP 16; TEMP 36.4–36.8; BMI 45.3
[2023-07-16 17:01] LABS: Basophils % 0.3 %; Eosinophils # 0.1 10^3/uL (0.0-0.8); Eosinophils % 1.2 %; Hematocrit 39.2 % (36-47); Lymphocytes # 2.7 10^3/uL (0.8-4.8); Lymphocytes % 23.9 %; Mean Corpuscular HGB Conc 33.9 g/dL (30-55); Mean Corpuscular Hemoglobin 28.7 pg (27-33); Mean Corpuscular Volume 84.5 fl (85-98); Mean Platelet Volume 10.3 fL (7.4-10.4); Monocytes # 0.6 10^3/uL (0.2-0.9); Neutrophils % 69.1 %; Nucleated Red Blood Cells % 0 %; Platelet Count 246 10^3/cmm (157-399); Red Blood Count 4.64 10^6/uL (3.85-5.65); Red Cell Distribution Width 14.5 % (12.1-15.1); White Blood Count 11.29 10^3/uL (3.29-11.43)
[2023-07-16] MEDS: miSOPROStol 100 mcg tablet 25 MCG VAGINAL ×2 (17:04→21:57)
[2023-07-16] MEDS: ampicillin 2,000 MG in sodium chloride 0.9% (plus) 50 ML 100 MG IV (17:05)
[2023-07-16] MEDS: dextrose 5%-lactated ringers 1,000 ML 125 ML IV (17:05)
[2023-07-16] MEDS: ampicillin 1,000 MG in sodium chloride 0.9% (plus) 50 ML 100 MG IV (21:32)
[2023-07-17] VITALS (72 sets, daily range): BP systolic 111–198; BP diastolic 58–103; PULSE 62–90; RESP 16; TEMP 35.9–36.8; O2SAT 85–98
[2023-07-17] MEDS: acetaminophen 325 mg Tablet 650 MG PO (01:05)
[2023-07-17] MEDS: ampicillin 1,000 MG in sodium chloride 0.9% (plus) 50 ML 100 MG IV ×6 (01:28→21:00)
[2023-07-17] MEDS: labetalol 200 mg Tablet 100 MG PO ×2 (02:11→09:23)
[2023-07-17] MEDS: lactated ringers 1,000 ML 999 ML IV ×3 (03:07→19:12)
[2023-07-17] MEDS: miSOPROStol 100 mcg tablet 25 MCG VAGINAL ×2 (03:50→08:52)
--- NOTE | 2023-07-17 06:14 | PM.OPHPUD ---
Labor & Delivery H&P Update Date of Procedure: July 17, 2023 Date H&P Performed: 07/15/23 Changes to previous documentation: The patient presented to my office with elevated blood pressures. Admission Diagnosis: 27-year-old 1 with underlying hypertension who now has additional -induced hypertension at 39 weeks presenting for induction. Primary indication for procedure: -induced hypertension superimposed over pregestational hypertension. Planned procedure: Induction Other information: The patient is a 27-year-old 1 at 39 weeks estimated gestational age who presented to the office for routine check. At that time she was noted to have elevated blood pressures with her systolic blood pressure being checked multiple times and being found to be above 150. As result she was sent to the OB department where her blood pressures were repeated and she was once again found to have elevated blood pressures. Her preeclamptic panel was performed and was found to be negative. Because of her gestational age, decision was made to induce the patient. Unfortunately, the OB department was unable to accommodate her at that time due to other women in labor. Yesterday afternoon we are able to initiate her induction. We started with Cytotec 25 mcg and we have placed 3 to this point. The patient has not had any other signs of preeclampsia. She has not had visual changes, headaches, or unusual swelling. Related Problem List Diagnoses (1) Hypertension: (2) induced hypertension: While the patient has baseline hypertension, and has been well-controlled throughout her . That she is now getting blood pressures that are not adequately controlled, the benefits of induction at this point outweigh the risks. I discussed this with the patient prior to induction. She had no further questions and wished to proceed the induction. She understands that induction does increase the risk of . Especially in her case since she has an unfavorable cervix. (3) 39 weeks gestation of : A&P Assessment and plan (1) Hypertension: Status: Acute (2) induced hypertension: Status: Acute Qualifiers: Trimester: third trimester Qualified Code(s): O13.3 - Gestational [-induced] hypertension without significant proteinuria, third trimester (3) 39 weeks gestation of : Status: Acute
[2023-07-17] MEDS: fentaNYL 50 mcg/mL INJ 2mL IVP ×2 (06:15→19:07)
[2023-07-17] MEDS: oxytocin 30 UNIT/500 ML BAG IV (13:43)
[2023-07-17] MEDS: hyDROXYzine 25 mg Capsule 50 MG PO ×2 (14:05→20:06)
[2023-07-17] MEDS: labetalol 200 mg Tablet PO (16:06)
--- NOTE | 2023-07-17 17:30 | P.ANESASSM_ITS ---
Pre-Anesthetic Assessment Height/Weight: Height 1.57 m Weight 112.491 kg Temp Pulse Resp BP O2 Del Method 97.3 F L 63 16 141/73 Room Air 07/17/23 17:08 07/17/23 17:06 07/17/23 06:15 07/17/23 17:06 07/16/23 16:20 Familial anesthetic complications: none Was Beta Delores taken within 24 hours: Yes Was Clonidine taken within 24 hours: N/A Social No alcohol and No tobacco Exam alert, oriented x 3, clear to auscultation bilaterally and regular rate & rhythm Airway Submandibular: within normal limits Cervical ROM: within normal limits Mallampati: Class II Dentition: full CV/HEM Arrythmia (SVT) and Hypertension induced HTN Neuropsych Anxiety, Bipolar and Depression Anesthetic Plan ASA status: 2 Anesthesia: Regional (specify below) (Labor epidural) Medications/Allergies Home Medications Medication Instructions Recorded Confirmed Last Taken Type acetaminophen 325 mg tablet 650 mg PO PRN 01/14/21 02/17/22 Unknown History (Tylenol) lorazepam 0.5 mg tablet (Ativan) 0.5 mg PO DAILY PRN anxiety #30 05/22/21 02/17/22 Unknown Rx tabs metoprolol tartrate 25 mg tablet 12.5 mg (1/2 x 25 mg) PO BID #90 02/17/22 02/17/22 Unknown Rx tabs labetalol 100 mg tablet 100 mg PO BID 04/12/23 04/12/23 04/12/23 03:00 History [id number] 1 mg tab PO 04/12/23 04/11/23 20:00 History tablet Allergies Allergy/AdvReac Type Severity Reaction Status Date / Time methylprednisolone Allergy Unknown Unknown Verified 02/17/22 15:52 cephalexin [From Keflex] Allergy ALGY-Hives Verified 02/17/22 15:52 peanut Allergy ALGY-Hives Verified 02/17/22 15:52 Sulfa (Sulfonamide Allergy ALGY-Hives Verified 02/17/22 15:52 Antibiotics) sulfamethoxazole Allergy ALGY-Hives Verified 02/17/22 15:52 [From Bactrim] trimethoprim [From Bactrim] Allergy ALGY-Hives Verified 02/17/22 15:52 Current Medications Generic Name Dose Route Start Last Admin Trade Name Freq PRN Reason Stop Dose Admin Acetaminophen 650 mg 07/16/23 16:20 07/17/23 01:05 Acetaminophen 325 Mg Tablet PO 650 mg Q6H PRN Administration Mild pain or temp > 100.4 Fentanyl 25 - 100 mcg 07/16/23 18:35 07/17/23 06:15 Fentanyl 50 Mcg/Ml Inj 2ml IVP 25 mcg Q1H PRN Administration SEVERE PAIN Hydroxyzine Pamoate 50 mg 07/16/23 16:20 07/17/23 14:05 Hydroxyzine 25 Mg Capsule PO 50 mg QID PRN Administration sleep, agitation or itching Lactated Ringer's 1,000 mls @ 999 mls/hr 07/16/23 16:20 07/17/23 05:30 Lactated Ringers IV 125 mls/hr .Q1H1M PRN Infusion Per L&D Rescitation Protocol Dextrose/Lactated Ringer's 1,000 mls @ 125 mls/hr 07/16/23 16:30 07/17/23 02:00 Dextrose 5%-Lactated Ringers IV 0 mls/hr .Q8H BERNARD Infusion Ampicillin Sodium 1,000 mg/ 50 mls @ 100 mls/hr 07/16/23 20:45 07/17/23 17:06 Sodium Chloride IV 100 mls/hr Q4H BERNARD Administration Protocol Oxytocin 30 unit in 500 mls @ 1 mls/hr 07/17/23 13:30 07/17/23 16:30 Pitocin IV 17 milliunit/min .Q24H BERNARD 17 mls/hr Titration Protocol 1 MILLIUNIT/MIN Labetalol HCl 200 mg 07/17/23 16:00 07/17/23 16:06 Labetalol 200 Mg Tablet PO 200 mg BID BERNARD Administration PFSH Anesthesia Medical History (Updated 07/17/23 @ 06:19 by Sher Feldman MD) Bipolar 1 disorder, mixed, moderate Generalized anxiety disorder Chronic post-traumatic stress disorder Anxiety Depression Hypoglycemia Surgical History History of tonsillectomy and adenoidectomy History of placement of ear tubes Family History Other Cancer Diabetes Hypertension Psychiatric illness Stroke Social History Smoking and tobacco/nicotine status: former use of tobacco/nicotine Second hand smoke exposure: Yes Alcohol intake: current Alcohol intake frequency: holidays/special occasions only Female Reproductive History : 1 Data Anesthesia 07/16/23 16:35 Short CBC 07/16/23 Range/Units 16:35 WBC 11.29 (3.29-11.43) 10^3/uL Hgb 13.30 (11.27-16.99) g/dL Hct 39.2 (36-47) % MCV 84.5 L (85-98) fl Plt Count 246 (157-399) 10^3/cmm Neut % (Auto) 69.1 % Neut # (Auto) 7.80 H (1.8-7.7) 10^3/uL Blood Bank 07/16/23 16:35 Blood Type O Positive Rho(D) Type Rh positive Antibody Screen Negative Cardiac Studies: 2 Echocardiogram 03/11/22 Cardiac Event Monitor 12/16/21
--- NOTE | 2023-07-17 19:35 | ANES.PROC ---
Anesthesia Procedures Procedure/Date: 07/17/23 Epidural: Time Out Performed: Yes Consents Signed: Procedure Consent Consent: requested by attending/covering physician and from patient Lumbar Level: L3-L4 Epidural position: sitting Epidural procedure: sterile prep of area, 1% lidocaine to numb the area, 18 g needle, neg for paresthesia, 1.5% xylocaine 1:200k epi (4cc), 0.2% Ropivacaine bolus ml (4cc and Fentanyl 100mcg), no systemic response, sterile dressing applied, L.U.D. no apparent complications and 0.2% Ropiavacaine @ mls/hr (10cc/hour) Additional Comments: DEYSI at 8cm. Cath inserted 2 cm into space. Pt tolerated well
[2023-07-17] MEDS: ROPivacaine syringe 100 MG/50 ML SYRINGE 10 MG EPIDURAL ×2 (19:45→23:55)
[2023-07-17] MEDS: dextrose 5%-lactated ringers 1,000 ML 125 ML IV ×2 (21:00→23:57)
[2023-07-18] VITALS (116 sets, daily range): BP systolic 106–180; BP diastolic 47–113; PULSE 67–120; RESP 15; TEMP 36.8–37.3; O2SAT 95–100
[2023-07-18] MEDS: ampicillin 1,000 MG in sodium chloride 0.9% (plus) 50 ML 100 MG IV ×3 (01:24→11:07)
[2023-07-18] MEDS: ROPivacaine syringe 100 MG/50 ML SYRINGE 10 MG EPIDURAL ×5 (03:19→13:58)
[2023-07-18] MEDS: labetalol 200 mg Tablet PO ×2 (05:12→17:20)
[2023-07-18] MEDS: ondansetron 2 mg/ML SDV 2 mL 4 MG IVP (06:03)
[2023-07-18] MEDS: magnesium sulfate premix 4 GM/100 ML PREMIX IV (07:24)
[2023-07-18] MEDS: magnesium sulfate premix 20 GM/500 ML BAG IV ×2 (07:43→16:45)
[2023-07-18 08:14] LABS: Basophils # 0.1 10^3/uL (0.0-0.1); Basophils % 0.3 %; Eosinophils % 0.3 %; Hematocrit 41.5 % (36-47); Lymphocytes # 1.8 10^3/uL (0.8-4.8); Lymphocytes % 12.4 %; Mean Corpuscular HGB Conc 33.3 g/dL (30-55); Mean Corpuscular Hemoglobin 28.4 pg (27-33); Mean Corpuscular Volume 85.4 fl (85-98); Mean Platelet Volume 10.1 fL (7.4-10.4); Monocytes # 0.9 10^3/uL (0.2-0.9); Neutrophils # 11.52 10^3/uL (1.8-7.7); Neutrophils % 80.6 %; Nucleated Red Blood Cells % 0 %; Platelet Count 249 10^3/cmm (157-399); Red Blood Count 4.86 10^6/uL (3.85-5.65); Red Cell Distribution Width 14.5 % (12.1-15.1)
[2023-07-18 08:27] LABS: Add Urine Microscopic? YES; Bilirubin Urine Neg (Negative); Blood Urine 3+ (Negative); Glucose Urine UA Norm (Normal); Ketones Urine 1+ (Negative); Leukocyte Esterase Urine 2+ (Negative); Nitrate Urine Negative (Negative); Protein Urine Neg (Negative); Urine Appearance Clear (CLEAR); Urine Color Yellow (Yellow); Urobilinogen Urine Norm (Negative); pH Urine 6.5 (5-7)
[2023-07-18 08:28] LABS: Add Urine Culture? Yes; Bacteria Urine 1+ /hpf; Mucus Urine 1+ /hpf; Squamous Epithelial Cell Urine 0-4 /hpf (0-5); WBC Urine 15-25 /hpf (0-5)
[2023-07-18 08:29] LABS: Urine Creatinine 120 mg/dL (28-217)
[2023-07-18 08:30] LABS: Alanine Aminotransferase 15 U/L (0-33); Albumin Level 3.4 g/dL (3.5-5.2); Alkaline Phosphatase 159 U/L (35-105); Aspartate Amino Transferase 18 U/L (0-32); Blood Urea Nitrogen 6 mg/dL (6-20); Calcium 8.8 mg/dL (8.5-10.5); Carbon Dioxide 18 mmol/L (22-29); Chloride 106 mmol/L (98-107); Globulin 3.1 g/dL (1.3-4.6); Glucose 134 mg/dL (65-115); Osmolality Calculated 284 mOsm/kg (285-295); Sodium 137 mmol/L (136-145); Total Bilirubin 0.4 mg/dL (0.15-1.2); Total Protein 6.5 g/dL (6.6-8.7); Uric Acid 7.2 mg/dL (2.4-5.7)
[2023-07-18 08:35] LABS: UPRO/UCREAT Ratio 0.26 mg/mg CR; Urine Protein Random 31 mg/dL
--- NOTE | 2023-07-18 09:48 | ANES.PROC ---
Anesthesia Procedures Procedure/Date: 07/18/23 epidural Procedure Narrative: Inital epidural inspected. Leaking noticed on dressing. Dressing removed and epidural was dislodged and not in place. It was agreed to remove and replace. 2nd epidural complete, bolus given, epidural pump initiated with [employer] education given, vitals taken during procedure using OBIX system and satisfactory throughout, patient admits to decrease pain, report of procedure to OB RN Epidural: Time Out Performed: Yes Consents Signed: Procedure Consent Consent: requested by attending/covering physician, from patient, risks and benefits reviewed and patient agrees to proceed Lumbar Level: L3-L4 Epidural position: sitting Epidural procedure: sterile prep of area, 1% lidocaine to numb the area (3 mL), 18 g needle, negative for paresthesia passed, neg for paresthesia, test dose given, 1.5% xylocaine 1:200k epi (5 mL), 0.2% Ropivacaine bolus ml (5 mL), placed PCEA, no systemic response, sterile dressing applied, L.U.D. no apparent complications and 0.2% Ropiavacaine @ mls/hr (13 mL/hr)
[2023-07-18] MEDS: calcium carbonate 500 mg Chew Tablet 1000 MG PO (12:33)
[2023-07-18] MEDS: lactated ringers 1,000 ML 999 ML IV (14:09)
--- NOTE | 2023-07-18 14:10 | ANES.PAUD2 ---
Pre-Anesthetic Update Pre-Anesthetic Assessment: Date of Surgery/Procedure: 07/18/23 Proposed Procedure: Any changes to Pre-Anesthetic Assessment?: No Last Intake: . 8 hrs Labs Last 48hrs: Short CBC 07/16/23 07/18/23 Range/Units 16:35 07:59 WBC 11.29 14.30 H (3.29-11.43) 10^ 3/uL Hgb 13.30 13.80 (11.27-16.99) g/ dL Hct 39.2 41.5 (36-47) % MCV 84.5 L 85.4 (85-98) fl Plt Count 246 249 (157-399) 10^3/c mm Neut % (Auto) 69.1 80.6 % Neut # (Auto) 7.80 H 11.52 H (1.8-7.7) 10^3/u L BMP 07/18/23 07:59 Sodium 137 Potassium 4.0 Chloride 106 Carbon Dioxide 18 L BUN 6 Creatinine 0.7 Glucose 134 H Calcium 8.8 Liver Function 07/18/23 Range/Units 07:59 Total Bilirubin 0.4 (0.15-1.2) mg/dL AST 18 (0-32) U/L ALT 15 (0-33) U/L Alkaline Phosphata se 159 H (35-105) U/L Albumin 3.4 L (3.5-5.2) g/dL Urine 07/18/23 Range/Units 07:52 Urine Color Yellow (Yellow) Urine Appearance Clear (CLEAR) Urine pH 6.5 (5-7) Ur Specific Gravit y 1.010 (1.005-1.030) Urine Protein Neg (Negative) Urine Glucose (UA) Norm (Normal) Urine Ketones 1+ H (Negative) Urine Nitrate Negative (Negative) Urine Bilirubin Neg (Negative) Ur Leukocyte Oksana ase 2+ H (Negative) Urine RBC 10-15 H (0-2) /hpf Urine WBC 15-25 H (0-5) /hpf Blood Bank 07/16/23 16:35 Blood Type O Positive Rho(D) Type Rh positive Antibody Screen Negative Vitals: Temperature 99.1 F 07/18/23 06:59 Temperature Source Axillary 07/18/23 06:59 Pulse Rate 112 H 07/18/23 14:04 Pulse Rhythm Regular 12/22/23 16:20 Pulse Strength 3+ Normal 12/22/23 16:20 Respiratory Rate 16 07/17/23 19:07 Respiratory Effort Spontaneous, Non- Labored 07/16/23 16:20 Respiratory Depth Normal 07/17/23 19:07 Respiratory Patter n Normal 07/16/23 16:20 Blood Pressure 180/95 07/18/23 14:04 Pulse Oximetry 97 07/18/23 09:33 Oxygen Delivery Me thod Room Air 07/16/23 16:20 Exam: Pre-Anes Outpt Exam: alert, oriented x 3, clear to auscultation bilaterally and regular rate & rhythm Cardiac Studies: Echocardiogram 03/11/22 Cardiac Event Monitor 12/16/21
--- NOTE | 2023-07-18 14:14 | PM.OBGYPN ---
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 The patient has been pushing for over 3 hours. She has not made any progress during that time. The baby is a 0 to +1 station. Her contractions are happening less frequently despite having Pitocin of 20. We discussed with her options and made her aware that at this point the best option for her and the baby is to have a lower transverse section. She has no further questions and wishes to proceed. Labor: Station: 0 Amniotic Membrane Status: Intact Monitor Mode: External Contraction Pattern: Irregular Vitals/I&O/Wt Last Vital Signs Temp 99.1 F 07/18/23 06:59 Pulse 112 H 07/18/23 14:04 Resp 16 07/17/23 19:07 BP 180/95 07/18/23 14:04 Pulse Ox 97 07/18/23 09:33 O2 Del Method Room Air 07/16/23 16:20 07/17/23 07/18/23 07/18/23 22:59 06:59 14:59 Intake Total 2490.20 / 2592.983 250 / 2842.983 295 / 295 Output Total 600 / 600 Balance 2490.20 / 2592.983 250 / 2842.983 -305 / -305 Weight last 48 hrs Weight 248 lb Physical Exam Narrative: The patient is alert. She appears comfortable. Her heart has a regular rate and rhythm with no murmurs appreciated. Lungs are clear to auscultation bilaterally. Urinary Catheter Management: Norman: Cath Placed During This Visit: yes Reason for Continuing Indwelling Catheter: Required Immobilization for Trauma or Surgery or Anesthesia Urinary Catheter Date of Insertion: 07/17/23 Urinary Catheter Time of Insertion: 20:15 Data 07/19/23 04:27 07/18/23 07:59 A&P Assessment and plan (1) induced hypertension: Qualifiers: Trimester: third trimester Qualified Code(s): O13.3 - Gestational [-induced] hypertension without significant proteinuria, third trimester (2) Hypertension: (3) 39 weeks gestation of : (4) Failure to progress in labor: Will proceed with a lower transverse section. We discussed the risks the patient including the risk of bleeding, infection, and damage to intra-abdominal organs. She had no further questions and wishes to proceed. (5) Gestational diabetes: Attestations Medical Necessity Statement*: I anticipate routine post care Coding Level of Care Code Acute Code for Chg Fwd Diagnoses -induced hypertension in third trimester O13.3 Trimester: third trimester Hypertension I10 39 weeks gestation of Z3A.39 Failure to progress in labor O62.2 Gestational diabetes O24.419
[2023-07-18] MEDS: famotidine 20 mg/2 mL INJ IVP (14:19)
[2023-07-18] MEDS: citric acid-sodium citrate 30 mL UDC PO (14:19)
[2023-07-18] MEDS: metoclopramide 5 mg/mL SDV 2 mL 10 MG IVP (14:19)
[2023-07-18] MEDS: ceFAZolin 2,000 MG in sodium chloride 0.9% (plus) 50 ML 100 MG IV (14:50)
[2023-07-18] MEDS: BUPivacaine 0.5% INJ 30 mL INJECTION (15:00)
--- NOTE | 2023-07-18 15:52 | PM.OP ---
Operative Report Date of procedure: July 18, 2023 Pre-op diagnosis: 1. 27-year-old 1 at 39 weeks estimated gestational age 2. Pregestational hypertension with superimposed gestational hypertension 3. Failure to progress Post-op diagnosis: Same Procedure done: Low-transverse section Specimens removed/disposition: 1. Male with a weight of 6 pounds 11 ounces and Apgars of 1 and 7 Surgeon: Sher Feldman MD Estimated blood loss (mL): 800 Complications: None Procedure: The patient was brought back to the operating room where she was prepped and draped in usual sterile fashion. Anesthesia was found to be adequate. A lower transverse skin incision was then made with a #10 blade. I then dissected down to the underlying subcutaneous tissue until arriving at the prerectal fascia. The fascia was then nicked with the scalpel bilaterally. The fascial incisions were then carried laterally with Rodriguez scissors. Attention was then turned to the superior aspect of the incision which was grasped with kochers and tented up away from the underlying rectus abdominis muscles. The muscles were then dissected away from the fascia manually, and later with Rodriguez scissors. Attention was then turned to the inferior aspect of the incision, and the fascia was dissected away from the underlying muscle in similar fashion. The rectus abdominis muscles were then spread manually. The peritoneum was entered manually. Excellent visualization of the uterus was noted. A lower transverse uterine incision was then made with a #10 blade. Upon arriving at the intrauterine cavity, the uterine incision was then extended manually. The infant was noted to be in vertex position. The baby's head was firmly impacted in the pelvis. I carefully maneuvered the head until is able to come through the uterine incision. There was no meconium. There there was a nuchal cord x 1 which was reduced before delivery of the head. The cord was cut and clamped. The baby was then handed to the waiting nurse. The placenta was removed intact. The uterus was externalized. The intrauterine cavity was cleansed of any remaining debris. The uterine incision was reapproximated in 2 layers. The first layer was performed with 0 Vicryl in a running locked stitch. The second layer was an imbricating stitch also using 0 Vicryl. The uterus was replaced into the abdomen. The peritoneum was then irrigated with warm saline. I reexamined the uterine incision and found it to be hemostatic. The rectus abdominis muscles were then reapproximated using 0 Vicryl in a running stitch. The fascia was then reapproximated using 0 Vicryl in running stitch. The subcutaneous tissue was reapproximated using 0 Vicryl in a running stitch. The skin was reapproximated using kai. A sterile dressing was placed. All counts were correct x2. Both the mother and baby were in stable condition.
--- NOTE | 2023-07-18 15:58 | ANE.PACU2 ---
Inpatient post-anesthesia follow up: Airway intact: Yes Vital signs: Temperature 99.1 F Pulse Rate 112 Respiratory Rate 16 Blood Pressure 180/95 Pulse Oximetry 97 Oxygen Delivery Me thod Room Air Oxygen Flow Rate Fraction of Inspir ed Oxygen Hydration adequate: Yes Nausea and vomiting: No Pain level: 1 Mental status: Baseline
[2023-07-18 20:45] LABS: Glucose Point of Care 115 mg/dL (70-110)
[2023-07-18] MEDS: ketorolac 30 mg/mL INJ IVP (21:19)
[2023-07-18] MEDS: lanolin oint 7 gm 1 APPLIC TOPICAL (21:20)
[2023-07-18] MEDS: simethicone 80 mg Chew PO (22:18)
[2023-07-19] VITALS (24 sets, daily range): BP systolic 107–152; BP diastolic 58–93; PULSE 60–80; RESP 16–18; TEMP 36.1
[2023-07-19] MEDS: oxyCODONE-APAP 5-325 mg Tablet PO ×4 (03:28→21:34)
[2023-07-19] MEDS: ketorolac 30 mg/mL INJ IVP ×2 (03:28→09:33)
[2023-07-19 04:33] LABS: Hematocrit 31.3 % (36-47); Mean Corpuscular HGB Conc 33.2 g/dL (30-55); Mean Corpuscular Hemoglobin 28.6 pg (27-33); Mean Platelet Volume 10.1 fL (7.4-10.4); Platelet Count 218 10^3/cmm (157-399); Red Blood Count 3.64 10^6/uL (3.85-5.65); Red Cell Distribution Width 14.8 % (12.1-15.1); White Blood Count 12.13 10^3/uL (3.29-11.43)
--- NOTE | 2023-07-19 06:29 | P.PN_ITS ---
POLICE AIDE Subjective 2 Subjective: Interval history: The patient has done well. Her pain is well-controlled. Her bleeding has been within normal limits. She is breast-feeding well. There are no concerns. Labor: Station: 0 Amniotic Membrane Status: Intact Monitor Mode: E xternal Contraction Pattern: Irregular Vitals/I&O/Wt Last Vital Signs Temp 97.0 F L 07/19/23 00:16 Pulse 71 07/19/23 06:16 Resp 18 07/19/23 03:28 BP 117/67 07/19/23 06:16 Pulse Ox 98 07/18/23 16:20 O2 Del Method Room Air 07/18/23 16:20 07/18/23 07/18/23 07/19/23 14:59 22:59 06:59 Intake Total 295 / 295 550 / 845 500 / 1345 Output Total 2200 / 2200 235 / 2435 700 / 3135 Balance -1905 / -1905 315 / -1590 -200 / -1790 Physical Exam 2 Narrative: She is in no acute distress Lungs are clear auscultation bilaterally Her heart has a regular rate and rhythm Her fundus is below the umbilicus and firm Her dressing is clean, dry and intact Her extremities have trace edema Urinary Catheter Management: Norman: Cath Placed During This Visit: yes Reason for Continuing Indwelling Catheter: Accurate Measurement of Urinary Output in Critically Ill Patients Urinary Catheter Date of Insertion: 07/18/23 Urinary Catheter Time of Insertion: 14:45 Data 07/19/23 04:27 07/18/23 07:59 A&P Assessment and plan (1) Status post : I anticipate routine post care. (2) Gestational diabetes: Blood sugars reasonable. (3) induced hypertension: Magnesium has been stopped. Qualifiers: Trimester: third trimester Qualified Code(s): O13.3 - Gestational [-induced] hypertension without significant proteinuria, third trimester (4) Failure to progress in labor: Attestations 2 Medical Necessity Statement*: I anticipate the patient be discharged tomorrow. Due to post care and gestational hypertension with some severe pressures. Coding Level of Care Code Acute Code for Chg Fwd Diagnoses Status post Z98.891 Gestational diabetes O24.419 -induced hypertension in third trimester O13.3 Trimester: third trimester Failure to progress in labor O62.2
[2023-07-19] MEDS: simethicone 80 mg Chew PO ×2 (06:56→21:34)
[2023-07-19] MEDS: ferrous sulfate EC 325 mg Tablet PO (09:34)
[2023-07-19] MEDS: prenatal vitamin Capsule 1 CAP PO (09:34)
[2023-07-19] MEDS: ibuprofen 800 mg tablet PO (21:33)
[2023-07-19] MEDS: labetalol 200 mg Tablet PO (21:35)
[2023-07-20 04:40] VITALS: BP 125/65; PULSE 72; RESP 18
[2023-07-20] MEDS: simethicone 80 mg Chew PO (04:40)
[2023-07-20] MEDS: oxyCODONE-APAP 5-325 mg Tablet PO ×2 (04:40→10:20)
--- NOTE | 2023-07-20 09:15 | ANE.PACU2 ---
Inpatient post-anesthesia follow up: Airway intact: Yes Vital signs: Temperature 97.0 F Pulse Rate 72 Respiratory Rate 18 Blood Pressure 125/65 Pulse Oximetry 98 Oxygen Delivery Me thod Room Air Oxygen Flow Rate Fraction of Inspir ed Oxygen Hydration adequate: Yes Nausea and vomiting: No Pain level: 1 Mental status: Baseline
[2023-07-20] MEDS: labetalol 200 mg Tablet 100 MG PO (09:57)
[2023-07-20] MEDS: ibuprofen 800 mg tablet PO (09:57)
[2023-07-20] MEDS: prenatal vitamin Capsule 1 CAP PO (09:57)
--- NOTE | 2023-07-20 09:57 | PM.OBGYDC ---
Discharge Providers BARIATRIC PROGRAM COORDINATOR Date of Admission: 07/16/23 16:20 Date of Discharge: 07/20/23 Attending Provider at Admission: Sher Feldman MD Attending Provider at Discharge: Sher Feldman MD Primary Care Provider: Franchesca Sheikh Diagnoses at Discharge Discharge Diagnosis (1) Status post : Status: Acute (2) Gestational diabetes: Status: Acute (3) induced hypertension: Status: Acute Qualifiers: Trimester: third trimester Qualified Code(s): O13.3 - Gestational [-induced] hypertension without significant proteinuria, third trimester (4) Failure to progress in labor: Status: Acute Reason for Visit Reason for Visit: IOL Hospital Course Hospital Course The patient presented to the hospital for induction due to gestational hypertension. She is placed on Cytotec 25 mcg x 4. She was placed on Pitocin. An amniotomy was performed. She progressed to complete. She pushed for 3 hours with no change in station of the baby. As was performed due to failure to progress. She did have some severe blood pressures and was placed on magnesium prior to delivery. She had no other symptoms of preeclampsia. She is maintained on magnesium for 12 hours postdelivery. Her pain was controlled. Her bleeding was within normal limits. She tolerated advance diet. She passed gas. There were no concerns. Information Peripartum Data: Delivery Method: Physical Exam Narrative: She is in no acute distress Lungs are clear auscultation bilaterally Her heart has a regular rate and rhythm Her fundus is below the umbilicus and firm Her dressing is clean, dry and intact Her extremities have trace edema She does have some edema in her mons pubis area. Urinary Catheter Management: Norman: Cath Placed During This Visit: yes, but has since been removed by the nurse Reason for Continuing Indwelling Catheter: Accurate Measurement of Urinary Output in Critically Ill Patients Urinary Catheter Date of Insertion: 07/18/23 Urinary Catheter Time of Insertion: 14:45 Date Urinary Catheter Removed: 07/19/23 Time Urinary Catheter Discontinued: 06:23 Discharge Data Studies Completed and Pending Pending at discharge Category Date Time Status Urine Culture Stat Lab 07/18/23 07:52 Results Laboratory Results WBC 12.13 10^3/uL (3.29-11.43) H 07/19/23 04:27 RBC 3.64 10^6/uL (3.85-5.65) L 07/19/23 04:27 Hgb 10.40 g/dL (11.27-16.99) L 07/19/23 04:27 Hct 31.3 % (36-47) L 07/19/23 04:27 MCV 86.0 fl (85-98) 07/19/23 04:27 MCH 28.6 pg (27-33) 07/19/23 04:27 MCHC 33.2 g/dL (30-55) 07/19/23 04:27 RDW 14.8 % (12.1-15.1) 07/19/23 04:27 Plt Count 218 10^3/cmm (157-399) 07/19/23 04:27 MPV 10.1 fL (7.4-10.4) 07/19/23 04:27 Neut % (Auto) 80.6 % 07/18/23 07:59 Lymph % (Auto) 12.4 % 07/18/23 07:59 [place] % (Auto) 6.0 % 07/18/23 07:59 Eos % (Auto) 0.3 % 07/18/23 07:59 Baso % (Auto) 0.3 % 07/18/23 07:59 Neut # (Auto) 11.52 10^3/uL (1.8-7.7) H 07/18/23 07:59 Lymph # (Auto) 1.8 10^3/uL (0.8-4.8) 07/18/23 07:59 [place] # (Auto) 0.9 10^3/uL (0.2-0.9) 07/18/23 07:59 Eos # (Auto) 0.0 10^3/uL (0.0-0.8) 07/18/23 07:59 Baso # (Auto) 0.1 10^3/uL (0.0-0.1) 07/18/23 07:59 Nucleated RBC % (auto) 0 % 07/18/23 07:59 Nucleated RBCs # 0.0 /100WBC 07/18/23 07:59 Sodium 137 mmol/L (136-145) 07/18/23 07:59 Potassium 4.0 mmol/L (3.5-5.1) 07/18/23 07:59 Chloride 106 mmol/L (98-107) 07/18/23 07:59 Carbon Dioxide 18 mmol/L (22-29) L 07/18/23 07:59 Anion Gap 17.0 (5-19) 07/18/23 07:59 BUN 6 mg/dL (6-20) 07/18/23 07:59 Creatinine 0.7 mg/dL (0.5-0.9) 07/18/23 07:59 GFR Calculation 102.0 mL/min (90-130) 07/18/23 07:59 Glucose 134 mg/dL (65-115) H 07/18/23 07:59 POC Glucose 115 mg/dL (70-110) H 07/18/23 19:06 Calculated Osmolality 284 mOsm/kg (285-295) L 07/18/23 07:59 Uric Acid 7.2 mg/dL (2.4-5.7) H 07/18/23 07:59 Calcium 8.8 mg/dL (8.5-10.5) 07/18/23 07:59 Total Bilirubin 0.4 mg/dL (0.15-1.2) 07/18/23 07:59 AST 18 U/L (0-32) 07/18/23 07:59 ALT 15 U/L (0-33) 07/18/23 07:59 Alkaline Phosphatase 159 U/L (35-105) H 07/18/23 07:59 Total Protein 6.5 g/dL (6.6-8.7) L 07/18/23 07:59 Albumin 3.4 g/dL (3.5-5.2) L 07/18/23 07:59 Globulin 3.1 g/dL (1.3-4.6) 07/18/23 07:59 Urine Color Yellow (Yellow) 07/18/23 07:52 Urine Appearance Clear (CLEAR) 07/18/23 07:52 Urine pH 6.5 (5-7) 07/18/23 07:52 Ur Specific [place] 1.010 (1.005-1.030) 07/18/23 07:52 Urine Protein Neg (Negative) 07/18/23 07:52 Urine Glucose (UA) Norm (Normal) 07/18/23 07:52 Urine Ketones 1+ (Negative) H 07/18/23 07:52 Urine Blood 3+ (Negative) H 07/18/23 07:52 Urine Nitrate Negative (Negative) 07/18/23 07:52 Urine Bilirubin Neg (Negative) 07/18/23 07:52 Urine Urobilinogen Norm mg/dL (Negative) 07/18/23 07:52 Ur Leukocyte Esterase 2+ (Negative) H 07/18/23 07:52 Urine RBC 10-15 /hpf (0-2) H 07/18/23 07:52 Urine WBC 15-25 /hpf (0-5) H 07/18/23 07:52 Ur Squamous Epith Cells 0-4 /hpf (0-5) H 07/18/23 07:52 Amorphous Sediment Not Reportable 07/18/23 07:52 Urine Bacteria 1+ /hpf (NONE) H 07/18/23 07:52 Urine Mucus 1+ /hpf 07/18/23 07:52 U Random Total Protein 31 mg/dL 07/18/23 07:52 Urine Creatinine 120 mg/dL (28-217) 07/18/23 07:52 Protein/Creatinin Ratio 0.26 mg/mg CR 07/18/23 07:52 Blood Type O Positive 07/16/23 16:35 Rho(D) Type Rh positive 07/16/23 16:35 Antibody Screen Negative 07/16/23 16:35 Vitals Last Vital Signs Temp 97.0 F L 07/19/23 09:57 Pulse 72 07/20/23 04:40 Resp 18 07/20/23 04:40 BP 125/65 07/20/23 04:40 Pulse Ox 98 07/18/23 16:20 O2 Del Method Room Air 07/18/23 16:20 Results Labs OB ([facility]): Obstetrics US 04/20/23 Blood Type O Positive 07/16/23 Antibody Screen Negative 07/16/23 Hct 31.3 % (36-47) L 07/19/23 Hgb 10.40 g/dL (11.27-16.99) L 07/19/23 Rho(D) Type Rh positive 07/16/23 Plt Count 218 10^3/cmm (157-399) 07/19/23 Hep Bs Antibody 68.9 (11.5-1000) 07/23/22 Rubella IgG Antibody 181.2 IU/mL (0.0-10.0) H 07/23/22 TSH 2.30 uIU/mL (0.27-4.20) 02/17/22 Free T4 1.06 ng/dL (0.82-1.77) 02/17/22 Uric Acid 7.2 mg/dL (2.4-5.7) H 07/18/23 VZV IgG Antibody 849.40 index 07/23/22 HCG, Qual Negative (Negative) 11/29/21 Micro Urine Specimen 07/18/23 Discharge Plan Discharge Patient Disposition: Home Condition: Stable Prescriptions: New labetalol 200 mg Tablet 100 mg PO BID Qty: 60 2RF ibuprofen 800 mg Tablet 800 mg PO TID Qty: 45 0RF oxycodone-acetaminophen 5-325 mg Tablet 1 tab PO Q6H PRN (Reason: Moderate To Severe Pain) Qty: 28 0RF -U 106.5-1 mg Capsule 1 cap PO BREAKFAST Qty: 90 1RF Discontinued lorazepam [Ativan] 0.5 mg tablet 0.5 mg PO DAILY PRN (Reason: anxiety) Qty: 30 1RF Rx Instructions: Take one tablet daily as needed for anxiety metoprolol tartrate 25 mg tablet 12.5 mg PO BID Qty: 90 3RF acetaminophen [Tylenol] 325 mg Tablet 650 mg PO PRN labetalol 100 mg Tablet 100 mg PO BID + Iron 1 mg Tablet PO Discharge Orders: Discharge Order (Routine); Ordered 07/20/23 Ordered By: Sher Feldman Referrals: Sher Feldman MD [Physician] - 07/26/23 7:45 am Discharge Diet: Usual diet Discharge Activity: Limit activity as instructed Patient Instructions: Depression (DC), Bleeding (DC), Preeclampsia and Eclampsia After Delivery (GEN), Hemorrhage (DC), OB - [place]/Elise, OB Discharge Report, OB Food/Drug Interaction Guide, Opioid Safety, OB Home Care, OB Proud Parent Packet Discharge Attestations BARIATRIC PROGRAM COORDINATOR Time Spent in Discharge Care*: greater than 30 min Coding Level of Care Code Acute Code for Chg Fwd Diagnoses Status post Z98.891 Gestational diabetes O24.419 -induced hypertension in third trimester O13.3 Trimester: third trimester Failure to progress in labor O62.2
[2023-07-20 10:00] VITALS: BP 132/86; PULSE 74
[2023-07-20 10:20] VITALS: RESP 17
[2023-07-20 11:35] VITALS: BP 157/89; PULSE 81
[2023-07-20 11:50] VITALS: BP 142/86; PULSE 69
[2023-07-20 12:45] VITALS: BP 142/86; PULSE 69; RESP 17
== END 2023-07-20 12:45 | disposition home or self-care (01) | DRG 788 ==
LOC: OPOB 07-17 08:34 → OBGYN 07-17 08:34
PROVIDERS: Admitting Provider Family Medicine; PCP Nurse Practitioner Family; Visit Provider Family Medicine
PROC: 10D00Z1 Extraction of Products of Conception, Low, Open Approach (ICD-10-PCS; CPT 59514; principal; 2023-07-18 14:30)
DX: O13.4 Gestational [pregnancy-induced] hypertension without significant proteinuria, complicating childbirth (principal); O62.2 Other uterine inertia; O24.429 Gestational diabetes mellitus in childbirth, unspecified control; Z37.0 Single live birth; Z3A.39 39 weeks gestation of pregnancy
CPT/HCPCS: 36415; 36416; 51702; 59025; 59409; 80053; 81001; 82570; 82962; 84156; 84550; 85025; 85027; 86850; 86900; 87086; 96374; 96376; 99211; J0290; J0690; J1885; J2274; J2405; J2590; J2765; J2795; J3010; J3475; J3490; J7120; J7121